=== PATIENT | female | born 1960 | race Caucasian/White ===

== ENCOUNTER 2022-01-02 16:54 | Emergency (ER) | payer OTHER ==
[~2022-01-02] VITALS: Ht 162.6 cm; Wt 45.5 kg
[~2022-01-02 16:54] MED LIST: BUSP10TA11 PO; CYAN500T71 PO; HYDR-3686 PO; MULT-955 PO; OMEP20CA15 PO; QUET300T2 PO; SUCR1ORA2 PO; ZIPR60CA2 PO
[2022-01-02 16:57] VITALS: BP 130/71
--- NOTE | 2022-01-02 17:03 | NUR ---
Attempted to place patient's wristband and place on monitor. Patient refused. She adamantly states she does not want any medical care.
--- NOTE | 2022-01-02 17:13 | NUR ---
APD AT BEDSIDE
--- NOTE | 2022-01-02 17:25 | NUR ---
Patient refusing CT scan, Dr. Bueno aware and spoke with patient regarding risks of refusal.
== END 2022-01-02 17:59 ==
LOC: ER 16:56
DX: S01.112A Laceration without foreign body of left eyelid and periocular area, initial encounter (principal); Z88.0 Allergy status to penicillin; Z88.8 Allergy status to other drugs, medicaments and biological substances; X58.XXXA Exposure to other specified factors, initial encounter; Y93.89 Activity, other specified; Y92.89 Other specified places as the place of occurrence of the external cause; Y99.8 Other external cause status
CPT/HCPCS: 12011; 70450; 99284

== ENCOUNTER 2023-01-14 16:32 | Emergency (ER) | payer OTHER ==
[~2023-01-14] VITALS: Ht 165.1 cm; Wt 44.0 kg
[2023-01-14 16:38] VITALS: BP 139/75; PULSE 124; RESP 16; TEMP 99.2; O2SAT 100
[2023-01-14] MEDS ORDERED: CEPH-585 PO (17:55)
[2023-01-14] MEDS ORDERED: NAPR-56 PO (17:55)
[2023-01-14] MEDS ORDERED: SULF1TAB49 PO (17:55)
== END 2023-01-14 18:05 | disposition home or self-care (01) ==
LOC: ER 16:32
DX: L03.114 Cellulitis of left upper limb (principal); Z88.0 Allergy status to penicillin; Z88.8 Allergy status to other drugs, medicaments and biological substances; Z79.2 Long term (current) use of antibiotics; Z79.899 Other long term (current) drug therapy
CPT/HCPCS: 99283

== ENCOUNTER 2025-01-18 13:40 | Emergency (ER) | payer OTHER ==
[~2025-01-18] VITALS: Ht 162.6 cm; Wt 55.0 kg
[2025-01-18 13:51] VITALS: BP 117/72; PULSE 91; RESP 18; TEMP 100.7; O2SAT 99
[2025-01-19] MEDS ORDERED: SULF1TAB49 PO (01:08)
== END 2025-01-18 14:56 | disposition left against medical advice (07) ==
LOC: ER 13:41
DX: T14.8XXA Other injury of unspecified body region, initial encounter (principal); Z88.0 Allergy status to penicillin; Z53.21 Procedure and treatment not carried out due to patient leaving prior to being seen by health care provider; X58.XXXA Exposure to other specified factors, initial encounter; Y93.89 Activity, other specified; Y92.89 Other specified places as the place of occurrence of the external cause; Y99.8 Other external cause status

== ENCOUNTER 2025-01-19 00:50 | Emergency (ER) | payer OTHER ==
[~2025-01-19] VITALS: Ht 162.6 cm; Wt 45.9 kg
[2025-01-19 00:54] VITALS: BP 128/84; PULSE 97; RESP 18; O2SAT 100
[2025-01-19] MEDS ORDERED: SULF1TAB49 PO (01:08)
--- NOTE | 2025-01-19 01:09 | Physician Documentation ---
History of Present Illness ~ Chief Complaint: Bite-insect Stated Complaint: BUG BITE Time Seen by MD: 01:05 Primary Medical Doctor: SAMANTHA PERERA This is a 64-year-old female who comes in for evaluation of what she thinks was a wasp sting three days ago that appears to have gotten infected. She reports that she has a a small scab and surrounding it now is red and hot to touch area. No particular palliating or aggravating factors. Did not attempt to treat it. Denies any fever or chills. Denies any chest pain or difficulty breathing. Patient denies any concerns for use of tobacco, alcohol or illicit substances. Tetanus within 5 years?: Yes Medication Reconciliation Allergies: Coded Allergies: Penicillins (Unverified Allergy, Mild, Rash, 01/18/25) Scheduled Buspirone Hcl* (Buspar*), 1 TAB PO BID, (Reported) Cyanocobalamin* (Vitamin B-12*), 2 TAB PO DAILY, (Reported) Multivitamin (Daily Value), 1 TAB PO DAILY, (Reported) Omeprazole (Omeprazole), 1 CAP PO DAILY, (Reported) Quetiapine Fumarate (Seroquel), 1 TAB PO HS, (Reported) Sucralfate (Carafate), 10 ML PO ACHS Ziprasidone HCl (Geodon), 1 CAP PO BID, (Reported) Scheduled PRN Hydroxyzine Hcl* (Atarax*), 2-3 TAB PO Q6H PRN PRN for anxiety, (Reported) Past Medical History Past Medical History: *GI/HEPATOBILIARY*, Anxiety, Depression Past Surgical History: abdominal surgery Alcohol Use: Alcoholic Drug Use: none Lives In: Home Occupation: employed Review of Systems ROS 10 point review of systems was performed and unless noted above in HPI is n egative for acute process/complaint. Physical Exam Vital Signs: Temperature: 99.2, Source: Oral, Heart Rate: 97, Respiratory Rate: 18, BP: 128/84, Pulse Oximetry: 100, Weight: 45.900 Physical Exam Physical examination: GENERAL: Awake, alert, oriented, GCS 15, no apparent distress, non-toxic appearing, answers questions, follows commands appropriately. Disheveled appearance. Appears markedly older than stated age. Constantly moving and appears to be responding to internal stimuli HEENT: Atraumatic, normocephalic, pupils equal, extraocular muscles intact Active gross movements, sclerae anicteric, mucus membranes moist, no stridor. NECK: Midline, no JVD CARDIOVASCULAR: Good skin perfusion without evidence of pallor, mottling. PULMONARY: Nonlabored, symmetric chest rise, no audible wheezing, no accessory muscle use, no respiratory distress, speaking in full sentences. GASTROINTESTINAL: Not distended. NEUROLOGIC: Lucid with normal mental status. Normal facial symmetry. Moves all extremities symmetrically and with purpose. No truncal ataxia. Speech is fluid without evidence of dysarthria or aphasia, no focal deficits appreciated. EXTREMITIES: Acute deformities Skin: warm, dry PSYCHIATRIC: Normal affect, normal insight, normal concentration. Focused exam: [Left anterior murphy is erythematous, 8 x 15 cm area is hot to touch, painful reproducing chief complaint. There is a 4 mm scab at the proximal portion of the erythematous area. Neurovascularly intact distally. Full range of motion of the ankle.] Progress Results/Orders Results/Orders Vital Signs 01/19/25 00:54 Temp 99.2 Pulse 97 Resp 18 B/P (MAP) 128/84 Pulse Ox 100 Medical Decision Making Findings Facility Status: ED Holds, E process The plan was discussed with the patient, who demonstrates clear understanding of the plan and is in agreement with the plan unless otherwise noted in the chart. All questions have been answered, all concerns were addressed unless otherwise documented. I was available throughout their ED stay for frequent reassessment and questions. Differential Diagnoses (considered and possible or likely): [Most likely represents cellulitis, possibly from infected area of skin picking, less likely insect sting, clinically not consistent with a an abscess, no evidence of necrotizing infection, unlikely osteomyelitis.] ??Differential Diagnoses (considered and unlikely, not requiring evaluation currently): [Neurovascularly intact distally] MDM Data Please see HPI for the following: Independent Historians and external Records Review. Historian: [Patient] Independent Historians: ?[Record review] Medication Management: [Reviewed medication list] Social History and determinants: [Reviewed] Please see the body of the note for the following: Any independent interpretations of ECG, imaging studies. All vitals signs/haemodynamics, ordered tests were independently reviewed and interpreted by myself. Nursing triage complaint and vitals reviewed, additional nursing notes were reviewed as available and I agree unless otherwise noted or documented in contradiction in the chart Vital Signs: Independently reviewed Labs: Independently interpreted Imaging: Independently interpreted Old Medical Records: Independently reviewed, see HPI for relevant summary and information Pulse Oximetry: [97%] interpreted as [normal on room air] by me Additionally notably showing: [Hemodynamically stable] Tests considered but not ordered include: [Hematologic workup and imaging has been considered but does not appear to be necessary given clinical nature of diagnosis] Social Determinants of Health Impact: Patient was evaluated in [facility], or [facility] [place] to healthcare due to below par ratio of patient to medical providers. [] Comorbid Conditions Impacting Present Evaluation and Care/Treatment: [None reported by the patient] Management Discussions with other Healthcare Providers: [None] Treatment and Disposition Medication Management (Given or considered): []. See EMR for details Consideration for Hospitalization/Escalation/Deescalation of Care: Admission for observation has been considered, [however the patient is able to tolerate p.o., their symptoms are controlled, they are able to rely on oral medications, and their chief complaint/diagnosis can be managed on outpatient basis.] ?ED Course:?[No clinical deterioration.] ?Shared decision making:?[Patient is hemodynamically stable for discharge home with follow with their primary care provider. [ ] Specific and cautious return precautions provided and discussed with full understanding. Any incidental findings were also discussed and follow up recommendations given. [] All questions answered. Patient/family were able to verbalize back return precautions. Patient/family agree to plan. Copies of imaging and laboratory studies were provided.] Code status:?FULL Please see the full Electronic Medical Record for full details of nursing documentation, medications list, other records of complete past medical history and conditions, vital signs, laboratory studies, and any radiologic study interpretations by radiologists. Portions of this note were completed using [email or web address] dictation software and as a result there may exist minor errors in spelling. I have reviewed elements of past family and social history and agree as included in note. Departure Disposition: 01 HOME / SELF CARE / HOMELESS Impression: Primary Impression: Lower extremity cellulitis Condition: Stable Discharge Instructions: Cellulitis, Adult Referrals: NO PRIMARY CARE PROVIDER (PCP) Prescriptions Sulfamethoxazole/Trimethoprim (Bactrim Ds Tablet) 800 Mg-160 Mg Tablet 1 TAB PO Q12H for 7 Days, #14 TAB Prov: AMOR PUENTE DO 01/19/25 Education Educated: Patient Educated regarding: diagnosis, treatment, prognosis, need for follow up Signature Scribe Signature: No scribe Attestation: Date: Jan 19, 2025 Time: 01:09 This note accurately reflects clinical decisions, work performed by myself, Amor Puente, AMOR ZAIDI DO Jan 19, 2025 01:09
[2025-01-19 01:13] VITALS: TEMP 99.2
== END 2025-01-19 01:18 | disposition home or self-care (01) ==
LOC: ER 00:51
DX: L03.115 Cellulitis of right lower limb (principal); Z88.0 Allergy status to penicillin; Z88.8 Allergy status to other drugs, medicaments and biological substances
CPT/HCPCS: 99283

== ENCOUNTER 2025-03-25 00:37 | Emergency (ER) | payer OTHER ==
[~2025-03-25] VITALS: Ht 162.6 cm; Wt 51.2 kg
--- NOTE | 2025-03-25 00:57 | Physician Documentation ---
History of Present Illness ~ Chief Complaint: Ear Pain Stated Complaint: EAR PAIN Time Seen by MD: 00:57 Primary Medical Doctor: SAMANTHA PERERA Patient presents to the emergency room with two nights of right ear pain. No fevers. That has having the sniffles. Medication Reconciliation Allergies: Coded Allergies: Penicillins (Unverified Allergy, Mild, Rash, 01/18/25) Scheduled Buspirone Hcl* (Buspar*), 1 TAB PO BID, (Reported) Cyanocobalamin* (Vitamin B-12*), 2 TAB PO DAILY, (Reported) Multivitamin (Daily Value), 1 TAB PO DAILY, (Reported) Omeprazole (Omeprazole), 1 CAP PO DAILY, (Reported) Quetiapine Fumarate (Seroquel), 1 TAB PO HS, (Reported) Sucralfate (Carafate), 10 ML PO ACHS Ziprasidone HCl (Geodon), 1 CAP PO BID, (Reported) Scheduled PRN Hydroxyzine Hcl* (Atarax*), 2-3 TAB PO Q6H PRN PRN for anxiety, (Reported) Past Medical History Past Medical History: *GI/HEPATOBILIARY*, Anxiety, Depression Past Surgical History: abdominal surgery Alcohol Use: Alcoholic Drug Use: none Lives In: Home Occupation: employed Review of Systems ROS All review of systems negative except as per HPI Physical Exam Vital Signs: Temperature: 97.8, Source: Temporal, Heart Rate: 89, Respiratory Rate: 16, BP: 136/85, Pulse Oximetry: 94, Weight: 51.200 Oxygen Flow Rate: 0 Physical Exam General: Patient is awake, alert, oriented x4 in no acute distress and well appearing.~ Head: Normocephalic and atraumatic. Eyes: Conjunctival normal. EOMI. PERRL. ENT: Mucous membranes moist. Tympanic membranes clear. No tenderness to palpation over mastoid process Neck: Supple, trachea is midline. Chest: Clear to auscultation bilaterally without rales, rhonchi, or wheezes. There is no accessory muscle use or retractions. Cardiac: RRR without murmurs, gallops, or rubs. Progress Results/Orders Results/Orders Vital Signs 03/25/25 00:42 Temp 97.8 Pulse 89 Resp 16 B/P (MAP) 136/85 Pulse Ox 94 O2 Flow Rate 0 Medical Decision Making Additional information obtaine: old records Findings Patient presents to the emergency room for evaluation of right ear pain as per HPI. Differentials include but are not limited to otitis externa, otitis interna, mastoiditis, TMJ, referred pain. Physical exam is reassuring. Possible Eustachian tube dysfunction. He had not feel patient requires emergent labs or imaging Ear Diff. Dx: Considerations: Include: Abrasion, Cerumen impaction, Foreign body, Otitis externa, Barotrauma, Otitis media, Perforation, Referred pain- dental, Referred pain-pharyngitis, Referred pain-sinusitis, Referred pain-TMJ syn., Tympanic Membrane Injury, Other Eye Diff. Dx: Considerations: Include: [place]az[place], Conjuctivits-allergic, Conjuctivitis-bacterial, Conjuctivits-chlamydial, Conjuctivitis-viral, Corneal abrasion, Corneal laceration, Corneal ulceration, Foreign body-conjuctiva, Foreign body-corneal, Foreign body-intraocular, Foreign body-lid, Glaucoma, Globe rupture, Hordeolum, Iritis, Orbital cellulitis, Periobital cellulitis, Retinal artery occulsion, Retinal vein occlusion, Rust ring, Subconjunctival hem, Ultraviolet keratitis, Uveitis, Vitreous hemorrhage, Other Nose Diff. Dx: Considerations: Include: Abrasion, Anterior nasal bleed, Avulsion, Contusion, Coagulopathy, Fracture-nasal bone, Fracture-septum, Hypertension, Laceration, Other, Posterior nasal bleed, Retained foreign body, Septal hematoma Tooth Diff. Dx: Considerations: Include: Alveolar fracture, Aveolar osteitis, ANUG, Facial cellulitis, Periapical abscess, Periodontal abscess, Post- extraction bleeding, Pulpitis, Trigeminal neuralgia, Tooth-avulsion, Tooth- eruption, Tooth-fracture, Tooth-subluxation, Other Throat Diff Dx: Considerations: Include: AIDS, Epiglottitis, Esophageal candidiasis, Hand foot mouth disease, Herpangina, Herpetic stomatitis, Herpes simplex, Infection mononucleosis, Immunodeficiency, Kale's angina, Peritonsillar abscess, Peritonsillar cellulitis, Pharyngitis-diphtheria, Pharyngitis-strepococcal, Pharyngitis-viral, Thrush, URI, Other Departure Disposition: 01 HOME / SELF CARE / HOMELESS Impression: Primary Impression: Eustachian tube dysfunction Condition: Stable Discharge Instructions: Eustachian Tube Dysfunction Referrals: NO PRIMARY CARE PROVIDER (PCP) Signature Scribe Signature: No scribe Attestation: The note accurately reflects work and decisions made by me.Newton Myers MD 03/25/25 01:09 NEWTON MYERS MD Mar 25, 2025 00:57
[2025-03-25] MEDS: ketorolac trometh 15mg/ml vial 15 MG/ML ML IM ONE (01:31)
[2025-03-25 01:43] VITALS: BP 132/82; PULSE 84; RESP 18; TEMP 98.6; O2SAT 99
== END 2025-03-25 01:43 | disposition home or self-care (01) ==
LOC: ER 00:38
DX: H69.91 Unspecified Eustachian tube disorder, right ear (principal); F41.9 Anxiety disorder, unspecified; F32.A Depression, unspecified; F10.90 Alcohol use, unspecified, uncomplicated; Z88.0 Allergy status to penicillin; Z79.899 Other long term (current) drug therapy; Y90.9 Presence of alcohol in blood, level not specified
CPT/HCPCS: 96372; 99283; J1885